=== PATIENT | male | born 1960 | race Hispanic/Latino ===

== ENCOUNTER 2016-11-29 07:40 | Day surgery (SDC) | payer OTHER ==
[~2016-11-29] VITALS: Ht 170.2 cm; Wt 99.8 kg
[~2016-11-29 07:40] MED LIST: CYCLOBENZAPRINE5 MG PO; NAPROSYN500 MG PO; NORCO 5-325 TA1 EACH PO; PERCOCET 5-3251 EACH; PERCOCET 5-3251 EACH PO; SUDAFED 12 HOU120 MG PO; TRAMADOL HCL50 MG; TRAMADOL HCL50 MG PO
--- NOTE | 2016-11-29 10:59 | NUR ---
11/29/16 1059 Gabi Song PT SAt 100, O2 REMOVED 1050- MD AT BEDSIDE TALKING WITH PT, ASSESSING PT VISION.
--- NOTE | 2016-11-29 11:48 | NUR ---
1235 - PT ARRIVED FROM PACU. DROWSY BUT EASILY AWAKE AND RESPONDING TO QUESTIONS APPROPRIATLY. AT BEDSIDE. PT REPORTING 3/10 PAIN AND DENIES NAUSEA. PT TOLERATING PO JELLOW AND FLUIDS. BED RAILS UP. CALL LIGHT WITHIN REACH.
--- NOTE | 2016-11-29 12:31 | NUR ---
PT REPORTS "FEELING MUCH BETTER." PT CONTINUES TO NAP ON AND OFF. REPORTING PAIN OF 2/10. WARM BLANKET PROVIDED. BED RAILS UP, CALL LIGHT WITHIN REACH. CONTINUES AT BEDSIDE.
--- NOTE | 2016-11-29 12:35 | NUR ---
hand off report given to charley tom rn
--- NOTE | 2017-01-03 09:33 | OR ---
[facility] [address], [place] [address] Signed DATE OF PROCEDURE: 11/29/16 PREOPERATIVE DIAGNOSIS Bilateral sinonasal polyposis with septal deformity. POSTOPERATIVE DIAGNOSIS Bilateral sinonasal polyposis with septal deformity. PROCEDURE Septoplasty, bilateral intranasal polypectomy, bilateral intranasal pansinusotomy. SURGEON: Steve Akers MD. ANESTHESIA: General orotracheal. FINANCIAL INVESTIGATOR: Traci Brady CRNA PREOPERATIVE HISTORY Mr. Ivy Jiemnez is a 56-year-old man with a long history of nasal obstruction, congestion due to sinonasal polyposis. This pathology has been confirmed by endoscopic exam in the off ice and a CT scan of the sinuses. He was taken to the operating room for the above-mentioned procedures. OPERATIVE PROCEDURE AND FINDINGS After informed consent, the patient was taken to the operating room, placed in the supine position where general orotracheal anesthesia was induced. The patient and procedure were verified. The patient received preoperative intravenous Ancef and intranasal oxymetazoline. The preop CT was viewed throughout. Headlight speculum exam of the nasal cavity showed a significant septal deformity on the left side, obstructive. The deviated septal bone and cartilage was removed with first 1% Lidocaine with Epi injection in the mucosa, elevation of the mucosa and excision of the deviated material with the Odalys. Airway was improved. Access to the nasal cavity and sinuses was obtained in this manner. The right side was then approached first. Extensive polyps were identified in the nasal cavity and these were removed with the Odalys. They were followed up to the sphenoid sinus medial to the middle turbinate and polyps were all removed from this area. The sphenoid sinus was opened. Polyps cleaned out of the sinus. The middle turbinate was then medialized. Middle meatus was filled with nasal polyps. These were removed with Odalys. Ethmoid bulla was taken down. Anterior ethmoid air cells were opened with the Odalys. Posterior ethmoid air cells, polypoid material removed from these areas. Middle meatal antrostomy was then made with a curved ring curette. Polyps removed from Electronically Signed By: STEVE AKERS MD 01/03/17 0933 PATIENT NAME: REBECCA CHAVEZ OPERATIVE REPORT DATE OF : 58 PHYSICIAN: STEVE AKERS MD REPORT #: [id number] REPORT IS CONFIDENTIAL AND NOT TO BE RELEASED WITHOUT AUTHORIZATION [facility] [address] [facility] [place] [address] Signed the maxillary sinus. The antrostomy was widened with the [facility]. Bleeding was minimal, stopped afterwards. Packing was then placed. A Rene Bernardo coated with Neosporin placed in the middle meatus. A trimmed Merocel pack coated with Neosporin in the nasal cavity. Same procedure on the left side. Similar findings. Polyps all removed. Sinuses opened, packing placed. The specimen was then sent separately left and right sinus contents to pathology. Hemostasis was verified. The pharynx was suctioned clear of blood and secretions. The packs were tied anteriorly over a pad. The patient was then awakened, extubated, transported to recovery room in good condition. BLOOD LOSS: Around 100 mL. SPECIMEN TO PATHOLOGY: Packing 2 pieces of Merocel each nostril. DRAINS: No drains. COMPLICATIONS: No complications. Steve Akers MD GC/Augustina /[id number] cc: Marianela Shepard PA-C Electronically Signed By: STEVE AKERS MD 01/03/17 0933 PATIENT NAME: LAM HUERTAREBECCA ZAYAS OPERATIVE REPORT DATE OF : 58 PHYSICIAN: STEVE AKERS MD REPORT #: [id number] REPORT IS CONFIDENTIAL AND NOT TO BE RELEASED WITHOUT AUTHORIZATION
== END 2016-11-29 13:10 | disposition home or self-care (01) ==
LOC: DS 07:40
PROVIDERS: Otolaryngology
PROC: 099 Ear, Nose, Sinus, Drainage (ICD-10-PCS; 2016-11-29)
PROC: 099R0ZZ Drainage of Left Maxillary Sinus, Open Approach (ICD-10-PCS; 2016-11-29)
PROC: 099Q0ZZ Drainage of Right Maxillary Sinus, Open Approach (ICD-10-PCS; 2016-11-29)
PROC: 099X0ZZ Drainage of Left Sphenoid Sinus, Open Approach (ICD-10-PCS; 2016-11-29)
PROC: 099W0ZZ Drainage of Right Sphenoid Sinus, Open Approach (ICD-10-PCS; 2016-11-29)
PROC: 099 Ear, Nose, Sinus, Drainage (ICD-10-PCS; 2016-11-29)
PROC: 09SM0ZZ Reposition Nasal Septum, Open Approach (ICD-10-PCS; principal; 2016-11-29 09:30)
DX: J34.2 Deviated nasal septum (principal); J33.8 Other polyp of sinus; G47.33 Obstructive sleep apnea (adult) (pediatric); Z88.5 Allergy status to narcotic agent
CPT/HCPCS: 00160; J0330; J0690; J1100; J2250; J2270; J2405; J2704; J3010; J7120

== ENCOUNTER 2019-01-31 07:21 | Day surgery (SDC) | payer OTHER ==
[~2019-01-31] VITALS: Ht 170.2 cm; Wt 107.5 kg
--- NOTE | 2019-01-31 08:32 | NUR ---
01/31/19 0832 Dona Levin 1271-PATIENT ARRIVED TO PACU ON 3L NC PLACED ON 2L. RR EVEN. PATIENT LAYING LEFT LATERAL. ABDOMEN SOFT. PATIENT REACTIVE TO VERBAL STIMULI OPENS EYES VERY DROWSY AND BACK TO SLEEP.
--- NOTE | 2019-02-01 05:57 | OR ---
[facility] [address], [place] [address] Signed DATE OF OPERATION: 01/31/2019 SURGEON: Chrissie Salgado MD PREOPERATIVE DIAGNOSIS: Screening. POSTOPERATIVE DIAGNOSES: 1. Abtyebo-zz-fotavfih sigmoid diverticulosis. 2. Minimal internal hemorrhoids. PROCEDURE: Colonoscopy without biopsy. ESTIMATED BLOOD LOSS: None. INDICATIONS: Rebecca is a 59-year-old gentleman, asked to see me for his initial screening colonoscopy. He has no lower GI complaints. There is no family history of colon cancer or polyps. In the office, I gave him booklets on colonoscopy as well as our written instructions for the bowel prep, all in Palauan. He does Tongan and Palauan very well, but he does Palauan better, particularly reading. He understands the nature of colonoscopy along with its risks including, but not limited to gas, bloating, crampy abdominal pain, bleeding, perforation requiring surgery, and missed diagnosis. He also understands the need for IV conscious sedation. He understands he will need an adult person to take him home afterwards. He expressed understanding and wished to proceed. PROCEDURE NOTE: Rebecca was taken into our endoscopy suite and placed in the left lateral decubitus position. He was given a total of 6 mg of Versed and 150 mcg of fentanyl to cover the case. Digital rectal exam was performed and there were no external hemorrhoids. His prostate is mildly enlarged and moderately indurated. No dominant nodules. The adult colonoscope was introduced and advanced all around into the cecum under direct visualization of the camera without difficulty. He did require some extra sedation. His prep was quite good. We could easily see the appendiceal orifice and the ileocecal valve. The scope was slowly withdrawn. Pictures were taken throughout for photodocumentation. He does have diverticula in the sigmoid colon. They were moderate in size, but relatively few in number, and scattered about. The rectum was unremarkable. Upon retroflexion of the scope, he has some very small internal Electronically Signed By: CHRISSIE SALGADO MD 02/01/19 0557 PATIENT NAME: REBECCA CHAVEZ OPERATIVE REPORT DATE OF : 58 REPORT #: [id number] PHYSICIAN: CHRISSIE SALGADO MD PCP: LAVERN TAPIA PAC REPORT IS CONFIDENTIAL AND NOT TO BE RELEASED WITHOUT AUTHORIZATION [facility] [address], [place] [address] Signed hemorrhoid columns. After this, the gas was suctioned out and colonoscope removed. Rebecca tolerated the procedure quite well. RECOMMENDATIONS: Rebecca can return in 10 years for repeat colonoscopy. MD EMMETT Phillips/LUKAS /[id number] cc: MD Lavern Phillips PA-C Copies: CHRISSIE SALGADO MD ~ Electronically Signed By: CHRISSIE SALGADO MD 02/01/19 0557 PATIENT NAME: LAM ACEVESREBECCA OPERATIVE REPORT DATE OF : 58 REPORT #: [id number] PHYSICIAN: CHRISSIE SALGADO MD PCP: LAVERN TAPIA PAC REPORT IS CONFIDENTIAL AND NOT TO BE RELEASED WITHOUT AUTHORIZATION
== END 2019-01-31 09:20 | disposition home or self-care (01) ==
LOC: OPS 07:21 → DS 07:21 → OPS 08:15
PROVIDERS: Colon & Rectal Surgery
PROC: 0DJD8ZZ Inspection of Lower Intestinal Tract, Via Natural or Artificial Opening Endoscopic (ICD-10-PCS; principal; 2019-01-31 08:15)
DX: Z12.11 Encounter for screening for malignant neoplasm of colon (principal); K57.30 Diverticulosis of large intestine without perforation or abscess without bleeding; K64.8 Other hemorrhoids; E66.9 Obesity, unspecified; E55.9 Vitamin D deficiency, unspecified; Z88.5 Allergy status to narcotic agent; Z88.6 Allergy status to analgesic agent
CPT/HCPCS: G0500; J2250; J3010; J7120

== ENCOUNTER 2019-10-19 06:30 | Emergency (ER) | payer OTHER ==
[~2019-10-19] VITALS: Ht 170.2 cm; Wt 107.5 kg
== END 2019-10-19 06:59 | disposition home or self-care (01) ==
LOC: ED 06:30
DX: B34.9 Viral infection, unspecified (principal); Z88.5 Allergy status to narcotic agent
CPT/HCPCS: 99283; C9803; U0002

== ENCOUNTER 2019-10-23 16:53 | Emergency (ER) | payer OTHER ==
[~2019-10-23] VITALS: Ht 170.2 cm; Wt 102.1 kg
--- OUTSIDE RECORDS SUMMARY | 2019-10-23 16:56 | XMS ---
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 Alie has no Care Guidelines for this patient. [place] VISIT COUNT (12 MO.) [facility] NOTE: Visits indicate total known visits. ED/C VISIT TRACKING (12 MO.) 10/23/2019 16:54 [facility] [place] TYPE: Emergency COMPLAINT: - CHEST PAIN, SOB 10/19/2019 06:30 EU[facility] OR TYPE: Emergency COMPLAINT: - FEVER, COUGH DIAGNOSES: - Fever, unspecified - Viral infection, unspecified - Allergy status to narcotic agent status INPATIENT VISIT TRACKING (12 MO.) No inpatient visits to display in this time frame [email or web address]
== END 2019-10-23 19:01 | disposition home or self-care (01) ==
LOC: ED 16:53
DX: B34.9 Viral infection, unspecified (principal)
CPT/HCPCS: 99283